=== PATIENT | male | born 1995 | race African-American/Black ===

== ENCOUNTER 2020-01-11 09:11 | Inpatient (IN) ==
[2020-01-11] MEDS ORDERED: ONDANSETRON 4 MG/2 ML VIAL IV STA (09:26)
[2020-01-11] MEDS ORDERED: HYDROmorphone 2 MG/1 ML VIAL IV STA (09:26)
[2020-01-11] MEDS ORDERED: SODIUM CHLORIDE 0.9% 1,000 ML IV STA ×2 (09:26→10:39)
[2020-01-11] MEDS ORDERED: ONDANSETRON 4 MG/2 ML VIAL ONE (09:26)
[2020-01-11] MEDS ORDERED: HYDROmorphone 2 MG/1 ML VIAL ONE (09:27)
[2020-01-11 10:11] LABS: Basophils % 0.3 % (0.0-0.8); Eosinophils # 0.1 10*3/uL (0.0-0.87); Eosinophils % 0.9 % (0.00-10.9); Hematocrit 49.2 VOL% (42.0-52.0); Hemoglobin 16.9 GM/DL (14.0-18.0); Immature Granulocytes % 0.5 %; Immature Granulocytes Absolute 0.06 #; Mean Corpuscular HGB Conc 34.3 GM/DL (32-36); Mean Platelet Volume 10.2 FL (9.6-12.0); Monocytes % 6.4 % (1.7-12.7); Neutrophils % 74.9 % (38.7-73.9); Platelet Count 268 T/CUMM (130-400); Red Blood Count 5.53 MC/CUMM (3.8-5.5); Red Cell Distribution Width 12.4 % (9.3-17.3); White Blood Count 11.8 T/CUMM (4-12)
[2020-01-11 10:29] LABS: Alanine Aminotransferase 24 U/L (16-61); Albumin 4.1 G/DL (3.4-5.0); Alkaline Phosphatase 48 U/L (45-117); Aspartate Amino Transferase 16 U/L (0-37); Blood Urea Nitrogen 12 MG/DL (7-18); Calcium 9.2 MG/DL (8.5-10.1); Estimated Glom Filtration Rate 117 ML/MIN; Glucose 114 MG/DL (74-106); Osmolality,Calculated 270.1 MOS/KG (273-304); Total Protein 7.2 G/DL (6.4-8.3)
[2020-01-11] MEDS ORDERED: LEVOFLOXACIN 750 MG TABLET PO STA (10:39)
[2020-01-11 10:40] LABS: Barbiturates Screen,Urine Negative (Negative); Benzodiazepines Screen,Urine Negative (Negative); Cannabinoid Screen,Urine Positive (Negative); Opiate Screen,Urine Positive (Negative); Phencyclidine Screen,Urine Negative (Negative)
[2020-01-11 10:41] LABS: Amorphous Crystals,Urine Moderate /HPF (Few); Apearance,Urine CLOUDY (Clear); Bilirubin,Urine Negative (Negative); Blood, Urine Negative (Negative); Glucose,Urine (UA) Negative (Negative); Ketones,Urine Negative (Negative); Mucus,Urine Occasional /LPF (Occasional); Nitrite,Urine Negative (Negative); Protein,Urine Negative; Urine Color Yellow (Yellow); Urine Specific Gravity 1.028 (1.001-1.035); Urine Urobilinogen < 2.0 EU/DL (0.2-1.0)
[2020-01-11] MEDS ORDERED: DOCUSATE SODIUM 100 MG CAPSULE PO PRN (11:18)
[2020-01-11] MEDS ORDERED: ACETAMINOPHEN 325 MG TABLET PO PRN (11:18)
[2020-01-11 11:49] LABS: Thyroid Stimulating Hormone 0.362 uIU/ml (0.358-3.74)
[2020-01-11] MEDS ORDERED: PANTOPRAZOLE 40 MG VIAL IV SCH (14:00)
[2020-01-11] MEDS: DEXTROSE 5% NACL 0.45% 1,000 ML IV SCH ×2 (16:02→22:24)
[2020-01-11] MEDS: POTASSIUM CHLORIDE RIDER 10 MEQ in PREMIX 1 EACH IV PRN ×2 (16:03→22:02)
[2020-01-11] MEDS: metroNIDAZOLE INJ 500 MG in PREMIX 1 EACH IV SCH (18:05)
[2020-01-11] MEDS: MORPHINE 4 MG/1 ML VIAL IV PRN (20:57)
[2020-01-11] MEDS: CIPROFLOXACIN INJ 400 MG in PREMIX 1 EACH IV SCH (20:58)
[2020-01-11] MEDS ORDERED: ENOXAPARIN 40 MG/0.4 ML SYRINGE SUBCUT SCH (21:00)
[2020-01-12] MEDS: metroNIDAZOLE INJ 500 MG in PREMIX 1 EACH IV SCH ×2 (00:09→10:34)
[2020-01-12] MEDS: DEXTROSE 5% NACL 0.45% 1,000 ML IV SCH (05:02)
[2020-01-12 05:42] LABS: Basophils % 0.3 % (0.0-0.8); Eosinophils # 0.1 10*3/uL (0.0-0.87); Eosinophils % 1.8 % (0.00-10.9); Hematocrit 48.8 VOL% (42.0-52.0); Hemoglobin 15.7 GM/DL (14.0-18.0); Immature Granulocytes % 0.8 %; Immature Granulocytes Absolute 0.05 #; Lymphocytes # 2.3 10*3/uL (1.4-4.0); Lymphocytes % 34.7 % (21.2-54.2); Mean Corpuscular HGB Conc 32.2 GM/DL (32-36); Mean Corpuscular Volume 93.3 FL (87-102); Mean Platelet Volume 10.4 FL (9.6-12.0); Monocytes % 9.8 % (1.7-12.7); Neutrophils % 52.6 % (38.7-73.9); Platelet Count 251 T/CUMM (130-400); Red Blood Count 5.23 MC/CUMM (3.8-5.5); Red Cell Distribution Width 12.6 % (9.3-17.3); White Blood Count 6.6 T/CUMM (4-12)
[2020-01-12 06:00] LABS: Albumin 3.4 G/DL (3.4-5.0); Bilirubin,Total 1.2 MG/DL (0.2-1.0); Calcium 8.9 MG/DL (8.5-10.1); Risk Ratio 4.61; Total Protein 6.3 G/DL (6.4-8.3); VLDL CHOLESTEROL 30.8 MG/DL
[2020-01-12] MEDS: MORPHINE 4 MG/1 ML VIAL IV PRN (06:15)
[2020-01-12] MEDS ORDERED: ONDANSETRON 4 MG/2 ML VIAL IV PRN (07:34)
[2020-01-12] MEDS ORDERED: ONDANSETRON 4 MG/2 ML VIAL ONE (07:37)
[2020-01-12] MEDS ORDERED: HYDROmorphone 2 MG/1 ML VIAL IV PRN (08:34)
[2020-01-12] MEDS: PANTOPRAZOLE 40 MG VIAL IV SCH ×2 (09:02→21:21)
[2020-01-12] MEDS: CIPROFLOXACIN INJ 400 MG in PREMIX 1 EACH IV SCH ×2 (09:02→21:21)
[2020-01-12] MEDS: LORazepam 2 MG/1 ML VIAL IV PRN ×2 (09:02→22:34)
[2020-01-12] MEDS: DEXT 5% NACL 0.9% KCL 20 MEQ 20 MEQ/1,000 ML BAG IV SCH ×2 (11:30→17:48)
[2020-01-13] MEDS: DEXT 5% NACL 0.9% KCL 20 MEQ 20 MEQ/1,000 ML BAG IV SCH (02:05)
[2020-01-13 03:14] LABS: Basophils % 0.4 % (0.0-0.8); Eosinophils # 0.2 10*3/uL (0.0-0.87); Hematocrit 47.4 VOL% (42.0-52.0); Hemoglobin 15.3 GM/DL (14.0-18.0); Immature Granulocytes % 0.5 %; Immature Granulocytes Absolute 0.04 #; Lymphocytes # 2.9 10*3/uL (1.4-4.0); Lymphocytes % 37.4 % (21.2-54.2); Mean Corpuscular HGB Conc 32.3 GM/DL (32-36); Mean Corpuscular Volume 93.5 FL (87-102); Mean Platelet Volume 10.3 FL (9.6-12.0); Monocytes % 9.2 % (1.7-12.7); Neutrophils % 50.5 % (38.7-73.9); Platelet Count 257 T/CUMM (130-400); Red Blood Count 5.07 MC/CUMM (3.8-5.5); Red Cell Distribution Width 12.4 % (9.3-17.3); White Blood Count 7.6 T/CUMM (4-12)
[2020-01-13 03:29] LABS: Calcium 8.5 MG/DL (8.5-10.1); Osmolality,Calculated 270.8 MOS/KG (273-304)
[2020-01-13 03:31] LABS: Albumin 3.4 G/DL (3.4-5.0); Bilirubin,Total 1.8 MG/DL (0.2-1.0); Calcium 8.6 MG/DL (8.5-10.1); Osmolality,Calculated 274.5 MOS/KG (273-304); Total Protein 6.2 G/DL (6.4-8.3)
[2020-01-13] MEDS ORDERED: LACTATED RINGERS 1,000 ML IV SCH (07:00)
[2020-01-13] MEDS ORDERED: propofoL 200 MG/20 ML VIAL IV ONE (09:00)
[2020-01-13] MEDS ORDERED: LIDOCAINE 2% 5 ML VIAL ONE (09:00)
[2020-01-13 11:43] VITALS: BP 147/82
[2020-01-13] MEDS ORDERED: PANTOPRAZOLE 40 MG TABLET PO SCH (19:00)
[2020-01-13] MEDS ORDERED: CIPROFLOXACIN 500 MG TABLET PO SCH (21:00)
== END 2020-01-13 13:18 | disposition home or self-care (01) | DRG 392 ==
LOC: N.ED 09:11 → N.EDINP 09:11 → SUATTDRO 11:18 → N.4E 13:00
PROVIDERS: ADMIT Internal Medicine; ATTEND Internal Medicine

== ENCOUNTER 2020-02-11 02:10 | Observation (INO) ==
[2020-02-11] MEDS ORDERED: ONDANSETRON 4 MG/2 ML VIAL IV STA (02:30)
[2020-02-11] MEDS ORDERED: HYDROmorphone 2 MG/1 ML VIAL IV STA (02:30)
[2020-02-11] MEDS ORDERED: PANTOPRAZOLE 40 MG VIAL IV STA (02:30)
[2020-02-11] MEDS ORDERED: SODIUM CHLORIDE 0.9% 1,000 ML IV STA (02:30)
[2020-02-11 03:29] LABS: Basophils % 0.3 % (0.0-0.8); Eosinophils % 0.3 % (0.00-10.9); Hematocrit 47.6 VOL% (42.0-52.0); Immature Granulocytes % 0.5 %; Immature Granulocytes Absolute 0.06 #; Lymphocytes # 1.5 10*3/uL (1.4-4.0); Lymphocytes % 12.5 % (21.2-54.2); Mean Corpuscular HGB Conc 33.6 GM/DL (32-36); Mean Corpuscular Volume 90.7 FL (87-102); Mean Platelet Volume 9.9 FL (9.6-12.0); Monocytes % 7.6 % (1.7-12.7); Neutrophils % 78.8 % (38.7-73.9); Platelet Count 239 T/CUMM (130-400); Red Blood Count 5.25 MC/CUMM (3.8-5.5); White Blood Count 11.8 T/CUMM (4-12)
[2020-02-11 03:53] LABS: Bilirubin,Total 1.9 MG/DL (0.2-1.0); Osmolality,Calculated 271.8 MOS/KG (273-304); Total Protein 6.8 G/DL (6.4-8.3)
[2020-02-11] MEDS ORDERED: SODIUM CHLORIDE 0.9% 1,000 ML IV SCH (04:55)
[2020-02-11] MEDS ORDERED: HYDROmorphone 2 MG/1 ML VIAL IV PRN (04:55)
[2020-02-11] MEDS ORDERED: ACETAMINOPHEN 325 MG TABLET PO PRN (04:55)
[2020-02-11] MEDS ORDERED: ONDANSETRON 4 MG/2 ML VIAL IV PRN (04:55)
[2020-02-11] MEDS: KETOROLAC 30 MG/1 ML VIAL IV SCH ×3 (08:17→20:37)
[2020-02-11] MEDS ORDERED: PANTOPRAZOLE 40 MG VIAL IV SCH (09:00)
[2020-02-11] MEDS: HYDROmorphone 2 MG/1 ML VIAL IV PRN ×3 (09:01→22:06)
[2020-02-11 09:38] LABS: Apearance,Urine CLEAR (Clear); Bilirubin,Urine Negative (Negative); Blood, Urine Negative (Negative); Glucose,Urine (UA) Negative (Negative); Ketones,Urine 80 mg/dL (Negative); Mucus,Urine Occasional /LPF (Occasional); Nitrite,Urine Negative (Negative); Protein,Urine Negative; RBC,Urine 4 /HPF (0-4); Urine Color Yellow (Yellow); Urine Specific Gravity 1.025 (1.001-1.035); Urine Urobilinogen < 2.0 EU/DL (0.2-1.0); WBC,Urine <1 /HPF (0-6)
[2020-02-12] MEDS: HYDROmorphone 2 MG/1 ML VIAL IV PRN ×5 (03:24→23:41)
[2020-02-12] MEDS: KETOROLAC 30 MG/1 ML VIAL IV SCH ×4 (03:24→20:06)
[2020-02-12 05:05] LABS: Basophils % 0.6 % (0.0-0.8); Eosinophils # 0.1 10*3/uL (0.0-0.87); Eosinophils % 1.4 % (0.00-10.9); Hemoglobin 14.9 GM/DL (14.0-18.0); Immature Granulocytes % 0.7 %; Immature Granulocytes Absolute 0.05 #; Lymphocytes # 2.9 10*3/uL (1.4-4.0); Mean Corpuscular HGB Conc 33.9 GM/DL (32-36); Mean Corpuscular Volume 90.3 FL (87-102); Mean Platelet Volume 10.3 FL (9.6-12.0); Neutrophils % 46.3 % (38.7-73.9); Platelet Count 224 T/CUMM (130-400); Red Blood Count 4.87 MC/CUMM (3.8-5.5); Red Cell Distribution Width 12.9 % (9.3-17.3)
[2020-02-12 05:27] LABS: Albumin 3.5 G/DL (3.4-5.0); Bilirubin,Total 2.7 MG/DL (0.2-1.0); Calcium 8.9 MG/DL (8.5-10.1); Total Protein 6.2 G/DL (6.4-8.3)
[2020-02-12] MEDS ORDERED: POTASSIUM CHLORIDE 20 MEQ TABLET PO PRN (06:36)
[2020-02-12 08:31] LABS: Bilirubin,Direct 0.6 MG/DL (0.0-0.20); Bilirubin,Indirect 2.5 MG/DL (0.0-1.0); Bilirubin,Total 3.1 MG/DL (0.2-1.0); Total Protein 7.1 G/DL (6.4-8.3)
[2020-02-12] MEDS: PANTOPRAZOLE 40 MG VIAL IV SCH ×2 (09:03→20:06)
[2020-02-12] MEDS: POLYETHYLENE GLYCOL POWDER 17 GM PACK PO SCH ×2 (14:42→20:06)
[2020-02-13] MEDS: KETOROLAC 30 MG/1 ML VIAL IV SCH ×2 (02:01→10:59)
[2020-02-13 06:58] LABS: Albumin 3.9 G/DL (3.4-5.0); Bilirubin,Direct 0.26 MG/DL (0.0-0.20); Bilirubin,Indirect 2.3 MG/DL (0.0-1.0); Bilirubin,Total 2.6 MG/DL (0.2-1.0)
[2020-02-13] MEDS: POLYETHYLENE GLYCOL POWDER 17 GM PACK PO SCH (10:59)
[2020-02-13] MEDS: PANTOPRAZOLE 40 MG VIAL IV SCH (10:59)
[2020-02-13 11:51] VITALS: BP 153/86
== END 2020-02-13 12:15 | disposition home or self-care (01) ==
LOC: N.EDINP 02:10 → N.ED 02:10 → N.3E 04:45
PROVIDERS: ADMIT Surgery; ATTEND Surgery

== ENCOUNTER 2020-03-15 06:25 | Observation (INO) ==
[2020-03-15] MEDS ORDERED: ONDANSETRON 4 MG/2 ML VIAL IV STA (06:41)
[2020-03-15 07:12] LABS: Basophils % 0.5 % (0.0-0.8); Eosinophils # 0.1 10*3/uL (0.0-0.87); Eosinophils % 1.8 % (0.00-10.9); Hematocrit 48.6 VOL% (42.0-52.0); Hemoglobin 16.7 GM/DL (14.0-18.0); Immature Granulocytes % 0.9 %; Immature Granulocytes Absolute 0.06 #; Lymphocytes % 30.2 % (21.2-54.2); Mean Corpuscular HGB Conc 34.4 GM/DL (32-36); Neutrophils % 54.6 % (38.7-73.9); Platelet Count 250 T/CUMM (130-400); Red Blood Count 5.34 MC/CUMM (3.8-5.5); Red Cell Distribution Width 12.8 % (9.3-17.3); White Blood Count 6.7 T/CUMM (4-12)
[2020-03-15 07:28] LABS: Albumin 4.6 G/DL (3.4-5.0); Bilirubin,Total 1.6 MG/DL (0.2-1.0); Calcium 9.7 MG/DL (8.5-10.1); Osmolality,Calculated 274.8 MOS/KG (273-304); Total Protein 7.7 G/DL (6.4-8.3)
[2020-03-15] MEDS ORDERED: DEXTROSE 50% 25 GM/50 ML VIAL IV PRN (09:09)
[2020-03-15] MEDS ORDERED: hydrALAZINE 20 MG/1 ML VIAL IV PRN (09:09)
[2020-03-15] MEDS ORDERED: GLUCAGON 1 MG VIAL IM PRN (09:09)
[2020-03-15] MEDS ORDERED: HYDROmorphone 2 MG/1 ML VIAL IV PRN ×2 (09:14→12:49)
[2020-03-15] MEDS ORDERED: HYDROmorphone 2 MG/1 ML VIAL IV STA (09:14)
[2020-03-15 10:00] LABS: Amylase 82 U/L (25-115)
[2020-03-15 10:04] LABS: Risk Ratio 3.81; Thyroid Stimulating Hormone 0.325 uIU/ml (0.358-3.74); VLDL CHOLESTEROL 10.2 MG/DL
[2020-03-15 10:18] LABS: Barbiturates Screen,Urine Negative (Negative); Benzodiazepines Screen,Urine Negative (Negative); Cannabinoid Screen,Urine Positive (Negative); Opiate Screen,Urine Positive (Negative); Phencyclidine Screen,Urine Negative (Negative)
[2020-03-15] MEDS: ONDANSETRON 4 MG/2 ML VIAL IV PRN (11:28)
[2020-03-15] MEDS: SODIUM CHLORIDE 0.9% 1,000 ML IV SCH (11:38)
[2020-03-15] MEDS ORDERED: KETOROLAC 30 MG/1 ML VIAL IV ONE (12:48)
[2020-03-15 13:19] LABS: HIV Antigen/Antibody Result Nonreactive (Nonreactive)
[2020-03-15] MEDS: PANTOPRAZOLE 40 MG VIAL IV SCH ×2 (15:09→21:17)
[2020-03-15] MEDS: POLYETHYLENE GLYCOL POWDER 17 GM PACK PO SCH (21:16)
[2020-03-15] MEDS: KETOROLAC 15 MG/1 ML VIAL IV SCH (21:17)
[2020-03-16] MEDS: SODIUM CHLORIDE 0.9% 1,000 ML IV SCH ×3 (01:30→08:58)
[2020-03-16] MEDS: POTASSIUM CHLORIDE RIDER 10 MEQ in PREMIX 1 EACH IV PRN ×4 (01:57→18:07)
[2020-03-16] MEDS: KETOROLAC 15 MG/1 ML VIAL IV SCH ×4 (02:26→20:10)
[2020-03-16] MEDS: ACETAMINOPHEN 325 MG TABLET PO PRN ×3 (04:15→14:58)
[2020-03-16] MEDS: ONDANSETRON 4 MG/2 ML VIAL IV PRN ×5 (04:48→21:44)
[2020-03-16 08:07] LABS: Basophils % 0.2 % (0.0-0.8); Eosinophils % 0.3 % (0.00-10.9); Hematocrit 48.1 VOL% (42.0-52.0); Hemoglobin 15.8 GM/DL (14.0-18.0); Immature Granulocytes % 0.6 %; Immature Granulocytes Absolute 0.06 #; Lymphocytes # 1.1 10*3/uL (1.4-4.0); Lymphocytes % 10.9 % (21.2-54.2); Mean Corpuscular HGB Conc 32.8 GM/DL (32-36); Mean Corpuscular Volume 91.6 FL (87-102); Mean Platelet Volume 10.1 FL (9.6-12.0); Monocytes % 5.7 % (1.7-12.7); Neutrophils % 82.3 % (38.7-73.9); Platelet Count 254 T/CUMM (130-400); Red Blood Count 5.25 MC/CUMM (3.8-5.5); Red Cell Distribution Width 12.8 % (9.3-17.3)
[2020-03-16 08:27] LABS: Calcium 9.6 MG/DL (8.5-10.1); Osmolality,Calculated 276.5 MOS/KG (273-304)
[2020-03-16] MEDS: PANTOPRAZOLE 40 MG VIAL IV SCH ×2 (08:52→20:11)
[2020-03-16] MEDS: POLYETHYLENE GLYCOL POWDER 17 GM PACK PO SCH ×2 (10:26→20:11)
[2020-03-16] MEDS: HYOSCYAMINE 0.125 MG TABLET PO PRN ×2 (13:20→20:10)
[2020-03-16] MEDS: ZOLPIDEM 5 MG TABLET PO SCH (21:44)
[2020-03-17] MEDS: ONDANSETRON 4 MG/2 ML VIAL IV PRN ×3 (02:23→20:18)
[2020-03-17] MEDS: KETOROLAC 15 MG/1 ML VIAL IV SCH (02:24)
[2020-03-17] MEDS: SODIUM CHLORIDE 0.9% 1,000 ML IV SCH ×3 (03:31→12:03)
[2020-03-17] MEDS: ALUMINUM/MAGNES/SIMETH MAX STR 30 ML UDCUP PO PRN (06:10)
[2020-03-17 06:57] LABS: Basophils % 0.1 % (0.0-0.8); Eosinophils % 0.1 % (0.00-10.9); Hematocrit 46.8 VOL% (42.0-52.0); Hemoglobin 15.8 GM/DL (14.0-18.0); Immature Granulocytes % 0.4 %; Immature Granulocytes Absolute 0.04 #; Lymphocytes # 1.4 10*3/uL (1.4-4.0); Lymphocytes % 14.8 % (21.2-54.2); Mean Corpuscular HGB Conc 33.8 GM/DL (32-36); Mean Corpuscular Volume 90.3 FL (87-102); Mean Platelet Volume 10.1 FL (9.6-12.0); Monocytes % 9.8 % (1.7-12.7); Neutrophils % 74.8 % (38.7-73.9); Platelet Count 254 T/CUMM (130-400); Red Blood Count 5.18 MC/CUMM (3.8-5.5); Red Cell Distribution Width 12.6 % (9.3-17.3); White Blood Count 9.7 T/CUMM (4-12)
[2020-03-17 07:14] LABS: Calcium 9.8 MG/DL (8.5-10.1); Osmolality,Calculated 273.8 MOS/KG (273-304)
[2020-03-17 07:17] LABS: Albumin 4.5 G/DL (3.4-5.0); Bilirubin,Direct 0.36 MG/DL (0.0-0.20); Bilirubin,Indirect 1.9 MG/DL (0.0-1.0); Bilirubin,Total 2.3 MG/DL (0.2-1.0); Total Protein 7.6 G/DL (6.4-8.3)
[2020-03-17] MEDS ORDERED: ALUM/MAG/SIMETH/LIDO VISC 1:1 30 ML BOTTLE PO ONE (07:56)
[2020-03-17] MEDS: KETOROLAC 10 MG TABLET PO PRN ×3 (08:05→23:13)
[2020-03-17] MEDS: POLYETHYLENE GLYCOL POWDER 17 GM PACK PO SCH ×2 (08:06→20:18)
[2020-03-17] MEDS: PANTOPRAZOLE 40 MG VIAL IV SCH ×2 (08:08→20:19)
[2020-03-17] MEDS: POTASSIUM CHLORIDE RIDER 10 MEQ in PREMIX 1 EACH IV PRN ×2 (08:37→12:02)
[2020-03-17] MEDS: METOCLOPRAMIDE 10 MG/2 ML VIAL IV SCH ×3 (12:02→23:12)
[2020-03-17] MEDS: ZOLPIDEM 5 MG TABLET PO SCH (20:18)
[2020-03-18] MEDS: ONDANSETRON 4 MG/2 ML VIAL IV PRN ×3 (01:01→14:12)
[2020-03-18] MEDS: SODIUM CHLORIDE 0.9% 1,000 ML IV SCH ×3 (03:47→14:10)
[2020-03-18] MEDS: METOCLOPRAMIDE 10 MG/2 ML VIAL IV SCH ×4 (05:23→17:31)
[2020-03-18] MEDS: KETOROLAC 10 MG TABLET PO PRN ×3 (05:24→21:02)
[2020-03-18 06:13] LABS: Albumin 4.3 G/DL (3.4-5.0); Bilirubin,Total 2.2 MG/DL (0.2-1.0); Calcium 9.8 MG/DL (8.5-10.1); Osmolality,Calculated 268.1 MOS/KG (273-304); Total Protein 7.3 G/DL (6.4-8.3)
[2020-03-18] MEDS: POLYETHYLENE GLYCOL POWDER 17 GM PACK PO SCH (08:37)
[2020-03-18] MEDS: PANTOPRAZOLE 40 MG VIAL IV SCH ×2 (08:38→21:02)
[2020-03-18] MEDS ORDERED: ZALEPLON 5 MG CAPSULE PO PRN (09:23)
[2020-03-18] MEDS: LINACLOTIDE 145 MCG CAPSULE PO SCH ×2 (13:30→14:10)
[2020-03-19] MEDS: METOCLOPRAMIDE 10 MG/2 ML VIAL IV SCH ×2 (00:09→05:14)
[2020-03-19] MEDS: SODIUM CHLORIDE 0.9% 1,000 ML IV SCH ×2 (05:11→06:36)
[2020-03-19] MEDS: KETOROLAC 10 MG TABLET PO PRN (05:11)
[2020-03-19] MEDS: ONDANSETRON 4 MG/2 ML VIAL IV PRN (05:11)
[2020-03-19] MEDS: ALUMINUM/MAGNES/SIMETH MAX STR 30 ML UDCUP PO PRN (05:19)
[2020-03-19] MEDS: PANTOPRAZOLE 40 MG VIAL IV SCH (09:01)
[2020-03-19] MEDS: LINACLOTIDE 145 MCG CAPSULE PO SCH (09:01)
[2020-03-19 11:18] VITALS: BP 146/84
== END 2020-03-19 11:29 | disposition home or self-care (01) ==
LOC: N.EDINP 06:25 → N.ED 06:25 → N.EDINP 10:25 → N.3E 10:39
PROVIDERS: ADMIT Internal Medicine; ATTEND Internal Medicine